=== PATIENT | female | born 1950 | race African-American/Black ===

== ENCOUNTER → 2017-03-15 | Outpatient (CLI) | payer BC, OTHER ==
[~2017-03-15] VITALS: Ht 165.1 cm; Wt 88.9 kg
[~2017-03-15] MED LIST: AMANTADINE 100100 MG PO; AUGMENTIN 875875 MG PO; BACLOFEN 10MG T10 MG PO; BENICAR 5 MG5 M1 PO; BENICAR40 MG PO; CELEXA 20 MG TA20 MG PO; CHONDROITIN SU250 MG; DEXILANT60 MG PO; EXCEDRIN CAPLE1 EACH PO; FLAGYL500 MG PO; LASIX 40 MG TAB40 M1 PO; LEVOTHYROXIN0.025 MG PO; MEDROL DOSPAK21 TAB PO; MEDROLDOSEPACK PO; MELOXICAM7.5 MG PO; NABUMETONE 500500 M2 PO; NEXIUM 40 MG CA40 M1 PO; NORCO 5-325 TA1 EACH PO; PERCOCET 5-3251 EACH PO; PEXEVA30 MG PO; POTASSIUM20; ROBAXIN500 MG PO; VITAMIN D 5050000 I1 PO; VITAMIN E400 UNIT PO
--- NOTE | ~2017-03-15 | HPC ---
[facility] [place] [address] PAIN MANAGEMENT CONSULTATION Name: IKE GREGORIO Room #: REG ISIDRA Pride[facility]PmaErica.#: [id number] Admission: 03/15/17 Attend Phys: Brandi Miller MD Discharge: Date of : 54 Report #: [id number] THIS REPORT FOR: //name// CC: Brandi Suarez MD FOLLOWUP COMPLAINT: Pain after a fall down steps with numbness in the right leg, which is pain, weakness and tenderness. FOLLOWUP HISTORY: The patient is a 66-year-old female who has been seen in the pain clinic in the past. She has undergone trauma since we saw her last. She states that she was walking stairs. A young child ran passed her. This caused her to fall down stairs. She hit her head. She has suffered a concussion. She has some difficulty with her balance as a result of the fall. She is in physical therapy undergoing treatment to improve her balance. Since the fall, she has noted pain in the lumbar area of her right side with pain in the posterior thigh muscle and calf with numbness and tingling down into her foot. She notes that her leg gives way as a result of the weakness. She has numbness and tingling in the lower extremity. She is walking with a cane because of this. She has used medications Relafen, Mobic. She finds that she is experiencing muscle spasms and baclofen has been helpful in the past. She continues with vestibular therapy and uses her cane because of the fall. She also notes some spasms in the upper mid portion of her back. PHYSICAL EXAMINATION: Blood pressure 106/72, pulse 94, respiratory rate 16, room air saturation 98%. Height 5 feet 5 inches. BMI is 32. Weight 89 kilograms. She is walking with a cane. She notes that her right leg is weak and almost gives way secondary to the weakness. She has numbness and tingling down into the L5-S1 dermatomal root of her leg. She is unable to walk on her toes on the right side. Straight leg raising is positive. IMPRESSION: 1. Status post fall in December down stairs. Resultant right lumbar radiculopathy with numbness, weakness and need to walk with a cane since fall. 2. Vestibular instability and undergoing vestibular therapy. 3. Myofascial pain in the mid back area, hypothyroidism, hypertension, joint disease/arthritis, history of cervical laminectomy with some numbness and tingling in the upper arms. 4. The patient has clinical findings consistent with L5-S1 radiculopathy involving the right side with weakness in her right leg requiring use of a cane, numbness and tingling down in the posterior portion of her leg and involving the calf. RECOMMENDATIONS: We discussed treatment options with the patient. Risks and benefits of an epidural steroid injection were discussed. Possible [address] [address] PAIN MANAGEMENT CONSULTATION Name: IKE GREGORIO Room #: REG ISIDRA Castro#: [id number] Admission: 03/15/17 Attend Phys: Brandi Miller MD Discharge: Date of : 54 Report #: [id number] complications were reviewed. 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 We will petition her insurance company, [employer]. After permission has been granted, we will proceed with L5-S1 epidural steroid injection. She will continue with baclofen to help with the muscle spasms. She will continue with her vestibular training. We would like to thank you for letting us participate in her care. We hope, she continues to improve. By: [id number] Brandi Miller MD /karissa
[2017-03-15 10:22] VITALS: BP 106/72
== END ==
LOC: PAIN 07:29
DX: M54.16 Radiculopathy, lumbar region (principal); M79.1 Myalgia; E03.9 Hypothyroidism, unspecified; I10 Essential (primary) hypertension; M96.1 Postlaminectomy syndrome, not elsewhere classified; F17.210 Nicotine dependence, cigarettes, uncomplicated

== ENCOUNTER → 2017-04-12 | Outpatient (CLI) | payer BC, OTHER ==
[~2017-04-12] VITALS: Ht 165.1 cm; Wt 89.4 kg
[~2017-04-12] MED LIST changes: +HYDROCODONE-AP1 EAC6 PO
--- NOTE | ~2017-04-12 | OD ---
[facility] [place] [address] [address] [place] [address] DELIVERY NOTE Name: IKE GREGORIO Room #: REG ISIDRA Gloria#: [id number] Admission: 04/12/17 Attend Phys: Brandi Miller MD Discharge: Date of : 54 Report #: [id number] THIS REPORT FOR: //name// CC: Brandi Suarez DATE OF SERVICE: 04/12/2017 FOLLOWUP COMPLAINT: Pain going down the right posterior leg with weakness and tenderness. FOLLOWUP HISTORY: The patient is a 66-year-old female who has been seen in the pain clinic because of lumbar radiculopathy status post fall. She is walking with a cane. She still has some vestibular instability. She notes that loud noises can be problematic. She was doing reasonably well and went to an activity where the noise was loud. She feels like she had somewhat of a setback. She would like to proceed with an epidural steroid injection today given that she continues to have pain and discomfort radiating down the posterior portion of her right leg and continues to walk with a cane. She continues to have some problems and difficulty with her balance. She continues with physical therapy to help with balance. PHYSICAL EXAMINATION: The patient continues to walk with her cane. Height 165 cm, weight 89 kg, BMI 32, blood pressure 116/78, pulse 98, respiratory rate 16, room air saturation is 99. We had music playing at a medium level in the fluoroscopy room. The patient asked if the music be turned down or almost off because this causes exacerbation of her hearing and involvement of her vestibular system. We turned down the music and she noted an increased level of comfort. IMPRESSION: 1. Status post fall in December down stairs with resultant lumbar radiculopathy with numbness, weakness and tenderness in the right lower extremity. The patient continues to walk with a cane. 2. Vestibular instability and ongoing vestibular therapy. The patient underwent some "setback" after being in an activity where the sound and noise level was high. The patient is considering going to her grandsons graduation. She may have to wear ear plugs or noise cancelling headphone. 3. Myofascial pain in the back, hypothyroidism, hypertension, joint disease/arthritis, history of cervical laminectomy numbness and tingling in the upper arms. RECOMMENDATIONS: We discussed the treatment options with the patient. We will proceed with an epidural steroid injection. Risks and benefits of the procedure were again reviewed. Possible complications were discussed and the patient [address] [address] DELIVERY NOTE Name: IKE GREGORIO Room #: REG [facility]#: [id number] Admission: 04/12/17 Attend Phys: Brandi Miller MD Discharge: Date of : 54 Report #: [id number] elects to proceed. DESCRIPTION OF PROCEDURE: The patient was placed in the prone position. Fluoroscopy was used to identify the right L5-S1 area. This area had been sterilely prepped with Betadine and infiltrated with 0.25% bupivacaine. Total of 80 mg Depo-Medrol, 40 mg triamcinolone and 2 mL of 0.25% bupivacaine was injected. The patient tolerated the procedure well. There were no complications. We would like to thank you for letting us participate in her care. We hope she continues to improve. By: [id number] Brandi Miller MD /nt
[2017-04-12 09:59] VITALS: BP 116/78
== END | disposition home or self-care (01) ==
LOC: PAIN 04-05 08:47
DX: M54.16 Radiculopathy, lumbar region (principal); H81.8X3 Other disorders of vestibular function, bilateral; M79.1 Myalgia; E03.8 Other specified hypothyroidism; I10 Essential (primary) hypertension; M19.90 Unspecified osteoarthritis, unspecified site; F17.200 Nicotine dependence, unspecified, uncomplicated; Z98.890 Other specified postprocedural states; Z91.81 History of falling

== ENCOUNTER → 2017-05-17 | Outpatient (CLI) | payer BC, OTHER ==
[~2017-05-17] VITALS: Ht 165.1 cm; Wt 89.8 kg
[~2017-05-17] MED LIST changes: +FLUCONAZOLE 10100 MG PO
[2017-05-17 11:30] VITALS: BP 132/77
== END | disposition home or self-care (01) ==
LOC: PAIN 06:55
DX: M79.1 Myalgia (principal); M54.16 Radiculopathy, lumbar region; F17.200 Nicotine dependence, unspecified, uncomplicated; Z88.2 Allergy status to sulfonamides; Z88.8 Allergy status to other drugs, medicaments and biological substances; Z79.82 Long term (current) use of aspirin; W17.89XD Other fall from one level to another, subsequent encounter; Z98.890 Other specified postprocedural states

== ENCOUNTER → 2017-09-04 | Outpatient (CLI) | payer OTHER | LOC: CAT 08-30 09:27 | DX: Z13.6 Encounter for screening for cardiovascular disorders (principal) ==

== ENCOUNTER → 2018-10-19 | Outpatient (CLI) | payer OTHER ==
[~2018-10-19] VITALS: Ht 165.1 cm; Wt 86.6 kg
[~2018-10-19] MED LIST changes: +DOXEPIN 10 MG C10 M1 PO; +HYDROCODON-ACE1 EAC7 PO; +MOBIC15 MG PO; +NEXIUM40 MG PO
--- NOTE | ~2018-10-19 | HPC ---
[facility] [address] [address] PAIN MANAGEMENT CONSULTATION Name: IKE GREGORIO Room #: REG [facility].#: [id number] Admission: 10/19/18 Attend Phys: Brandi Miller MD Discharge: Date of : 54 Report #: [id number] THIS REPORT FOR: //name// CC: Brandi Suarez DATE OF SERVICE: 10/19/2018 PRIMARY CARE PHYSICIAN: Basim Suarez MD FOLLOWUP COMPLAINT: Pain has returned in the low back area. HISTORY: The patient is a 68-year-old female who has been seen in the pain clinic in the past because of low back pain with some pain that radiates down into her legs. Also, has noted some thoracic pain and SI joint pain. She has undergone trigger point injections in the past. She has gleaned benefits from both of those. She has noted that the pain is "flared up after physical therapy." Involves her shoulders. It is worse in the upper shoulder and back area. She also feels that she has pain and discomfort in the lower portion of the back and feels that there is a "knot in her back that has been difficult to resolve." She received benefits from trigger point injection in the past and has returned for evaluation and treatment. ALLERGIES: CONTRAST DYE, SULFA, IODINE, OXYCODONE, GATIFLOXACIN, METOCLOPRAMIDE-MADE HER CRAZY, CODEINE CAUSE HIVES. MEDICATIONS: Nexium 40 mg b.i.d., fluconazole 100 mg orally for 14 days after use of steroids secondary to the development of thrush, Benicar 40 mg, Pexeva 30 mg, levothyroxine 0.025 mg, vitamin D 50,000 units weekly, Excedrin caplets 2 tablets q.i.d., Robaxin 500 mg b.i.d., nabumetone 500 mg b.i.d., K-Dur 20 mEq, Lasix 40 mg. PAIN CLINIC ASSESSMENT/PQRS: 1. History of osteoarthritis, right upper extremity, right lower extremity. 2. History of rheumatoid arthritis. The patient is not being treated for rheumatoid arthritis. 3. Height 5 feet 5 inches, weight 191 pounds, BMI 31.8. 4. Vital signs: Blood pressure 124/77, pulse 116, respiratory rate 20, room air saturation 99%. 5. Pain intensity 05/29. 6. Fall risk. The patient has not fallen in the last 3 months. 7. Blood thinner: The patient is not on a blood thinning medication. 8. Hypertension. The patient is being treated for hypertension. 9. Opioid therapy greater than 6 weeks. 10. Risk assessment 3, low for opioid use. 11. Functional assessment tool 57/70. [place] [address] PAIN MANAGEMENT CONSULTATION Name: IKE GREGORIO [facility] [id number] Admission: 10/19/18 Attend Phys: Brandi Miller MD Discharge: Date of : 54 Report #: [id number] 12. Recreational drug use. The patient denies use of recreational drugs. 13. Currently the patient smokes 4 cigarettes a day, has smoked for the last 30 years. We discussed the benefits of the cessation of tobacco use with the patient. 14. Alcohol: The patient denies frequent use of alcoholic beverages except on special occasions. PHYSICAL EXAMINATION: GENERAL: The patient is a well-developed, well-nourished black female, appears her stated age. She is alert and oriented x 3. Her affect is appropriate. Speech is fluent. HEENT: Normocephalic, atraumatic. Extraocular eye muscles intact. Sclerae nonicteric. Mucous membranes are moist. NECK: Without adenopathy or JVD. The patient has some pain and discomfort in her shoulders bilaterally. Has global tenderness to palpation in the upper back, left and right lower back area. The patient has pain and discomfort in the left and right posterior superior iliac spine area. Has low back pain and discomfort. Upper extremity muscle strength is judged to be 5-/5 for the major muscle groups. Lower extremity muscle strength 5-/5 for the major muscle groups in lower extremity. Use her arms to go from sitting to a standing position. IMPRESSION: 1. Myofascial pain in the low back area, which improved with trigger point injection in the past. 2. Somewhat global myofascial pain and discomfort in the upper extremity. Vestibular instability-underwent therapy. 3. Hypothyroidism. 4. Hypertension. 5. Joint disease/arthritis. 6. History of cervical laminectomy with numbness and tingling in the upper arms. 7. Myofascial pain. RECOMMENDATIONS: We discussed treatment option with the patient. She has so many trigger points in the upper extremity. We have discussed the need for the patient to try to continue to exercise and hopefully the most painful area will present itself. We explained there is no way we could inject a number of pain areas that she is experiencing at this juncture. Does have pain and discomfort in the left posterior superior iliac spine area in the back on the left and the right, which in the past when injections were performed were beneficial. The patient has elected to undergo this injection at this juncture. PROCEDURE NOTE: The patient was placed in sitting position. Her back was sterilely prepped with a Betadine solution on the left than the right. The patient was sitting perpendicular to the bed. Her feet were in a chair. Leaning forward holding a pillow. Trigger points were noted in the left and [facility] [address] [place] [address] PAIN MANAGEMENT CONSULTATION Name: IKE GREGORIO Room #: REG [facility] Gloria#: [id number] Admission: 10/19/18 Attend Phys: Brandi Miller MD Discharge: Date of : 54 Report #: [id number] right posterior superior iliac spine area. A 25-gauge needle was then advanced into this area after it had been sterilely prepped with a chlorhexidine solution and allowed to dry. The patient states that we did hit the trigger point in the left posterior superior iliac spine near the latissimus dorsi and the gluteus silva. A total of 80 mg Depo-Medrol was injected. The contralateral side was treated in a like fashion. A 25-gauge needle was used to identify the trigger point in the right posterior superior iliac spine near the latissimus dorsi and gluteus silva. A total of 80 mg Depo-Medrol and 10 mL of 0.5% bupivacaine was injected into this area as well. The patient's pain overall decreased to 0 at the time of her discharge. She will continue to exercise as needed. A script for fluconazole 100 mg has been written. The patient does develop a thrush after each use of prednisone. She has also been given a script for hydrocodone 5/325 one p.o. b.i.d. Meloxicam 15 mg 1 p.o. daily has been also issued. A muscle relaxant, baclofen 10 mg 1 p.o. t.i.d. has been written. The patient will also try doxepin 10 mg at bedtime and note its efficacy. We would like to thank you for letting us participate in her care. We hope she continues to improve. <ELECTRONICALLY SIGNED> By: Brandi Miller MD 10/24/18 [id number] [id number] Brandi Miller MD /[facility]
[2018-10-19 10:39] VITALS: BP 124/77
== END | disposition home or self-care (01) ==
LOC: PAIN 08:31
DX: M79.18 Myalgia, other site (principal); E03.9 Hypothyroidism, unspecified; I10 Essential (primary) hypertension; M19.90 Unspecified osteoarthritis, unspecified site; F17.210 Nicotine dependence, cigarettes, uncomplicated; Z98.890 Other specified postprocedural states; Z88.2 Allergy status to sulfonamides; Z88.8 Allergy status to other drugs, medicaments and biological substances; Z91.041 Radiographic dye allergy status; Z79.899 Other long term (current) drug therapy; Z79.891 Long term (current) use of opiate analgesic

== ENCOUNTER → 2019-01-18 | Outpatient (CLI) | payer OTHER ==
[~2019-01-18] VITALS: Ht 165.1 cm; Wt 88.6 kg
--- NOTE | ~2019-01-18 | HPC ---
[facility] [place] [address] [address] [place] [address] PAIN MANAGEMENT CONSULTATION Name: IKE GREGORIO [facility] [id number] Admission: 01/18/19 ������������������ Attend Phys: Brandi Miller MD Discharge: ������������������ Date of : 54 Report #: [id number] THIS REPORT FOR: //name// CC: Brandi Suarez DATE OF SERVICE: 01/18/2019 CHIEF COMPLAINT: Pain improved after the last injection, but has returned. 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 As you recall, she has back pain. She has had some myofascial pain in the low back area and has improved after trigger point injections. She returns today indicating that she has noted recurrence of pain and discomfort. She would like to undergo an injection in the affected areas again. She had no complication from the previous treatment. She has pain in the mid and low back area and involves both hips. Rates her pain as a 4-5/10. Walking, standing, lifting, bending have been problematic. Use of heat, medications and rest have been helpful. ALLERGIES: CONTRAST DYE, SULFA, IODINE, OXYCODONE, GATIFLOXACIN METOCLOPRAMIDE -- made her crazy, CODEINE CAUSES HIVES. CURRENT MEDICATIONS: Nexium 40 mg b.i.d., fluconazole 100 mg orally for 14 days after use of steroids secondary to development of thrush. Benicar 40 mg, pexeva x 30 mg, levothyroxine 0.25 mg, vitamin D 50,000 units weekly, Excedrin caplets 2 mg q.i.d., Robaxin 500 mg, nabumetone 500 mg b.i.d., potassium 20 mEq, and Lasix 40 mg. PAIN CLINIC ASSESSMENT/PQRS: 1. The patient has some right upper extremity arthritic changes as well as some right lower extremity arthritic changes. The patient is not being treated for rheumatoid arthritis. 2. Height 5 feet 5 inches, weight 195 pounds, BMI is 32. 3. Vital signs: Blood pressure 127/77, pulse 97, respiratory rate 16, room air saturation 99%. 4. Pain intensity 4-5/10. 5. Fall risk. The patient has not fallen in the last 3 months. 6. Blood thinner. The patient is not on a blood thinning medication. 7. Hypertension. The patient has been treated for hypertension. 8. Opiates greater than 6 weeks. The patient receives her medication from one source. 9. Risk assessment tool 3/low for opioid use. 10. Functional assessment tool 57/70. 11. Recreational drug use. The patient denies use of recreational drugs. 12. Tobacco: The patient smokes 4-5 cigarettes per day, has smoked for many [address] [address] PAIN MANAGEMENT CONSULTATION Name: IKE GREGORIO Room #: REG [facility]#: [id number] Admission: 01/18/19 ������������������ Attend Phys: Brandi Miller MD Discharge: ������������������ Date of : 54 Report #: [id number] years, again discussed the benefits of smoking cessation. 13. Alcohol. The patient drinks on special occasions, but not regularly. PHYSICAL EXAMINATION: GENERAL: The patient is a well-developed, well-nourished black female, appears her stated age. She is alert and oriented x 3. Her affect is appropriate. Speech is fluent. HEENT: Normocephalic, atraumatic. Extraocular eye muscles intact. Sclerae nonicteric. Mucous membranes are moist. NECK: Without adenopathy or JVD. The patient has some tenderness in the upper back on the left than the right areas near the left and right L5 paraspinal area. Palpation in this area does reproduce a component of the patient's pain. Muscle strength is judged to be 5-/5 for the major muscle groups in the lower extremity. IMPRESSION: 1. Myofascial pain, low back area improved with trigger point injections in the past. 2. Global myofascial pain and discomfort in some areas of the upper extremity. Some history of vestibular instability, has undergone therapy for this. 3. Hypothyroidism. 4. Hypertension. 5. Joint disease/arthritis. 6. History of cervical laminectomy numbness and tingling in the upper arms. 7. Myofascial pain. RECOMMENDATIONS: We discussed treatment options with the patient. Risks and benefits of a trigger point injection in the left and the right area were discussed. They include possibility of infection, worsening of pain, no improvement in pain, nerve damage, bleeding and the patient elects to proceed. PROCEDURE NOTE: The patient was placed in the sitting position. She has perpendicular to the bed. He was elevated. Chair was then placed under her feet. She would lean forward as though she can tie her shoes. Her back was sterilely prepped with a Betadine solution and allowed to dry. A 25-gauge needle was then advanced into the area of the right posterior superior iliac spine near the gluteus silva and latissimus dorsi. The patient states this did reproduce her discomfort. A total of 8 mL of 0.5% bupivacaine and 80 mg Depo-Medrol was injected. The contralateral side was treated in a like fashion. It had been sterilely prepped. Trigger point was noted in the area of the left posterior superior iliac spine area and the gluteus silva and latissimus dorsi. Palpation reproduces discomfort. A 25-gauge needle was then advanced into the area of discomfort. A total of 80 mg Depo-Medrol, 8 mL of 0.25% bupivacaine was injected. The patient tolerated the procedure well. She will follow up in the future as needed. The patient has also been given a script for fluconazole 100 mg orally ____. The patient has a history of development of [facility] [place] [address] PAIN MANAGEMENT CONSULTATION Name: IKE GREGORIO Room #: REG [facility]#: [id number] Admission: 01/18/19 ������������������ Attend Phys: Brandi Miller MD Discharge: ������������������ Date of : 54 Report #: [id number] thrush. She will also continue with Meloxicam and hydrocodone 5/325 one p.o. b.i.d. We would like to thank you for letting us participate in her care. We hope she continues to improve. ��������������������������������������������� ���������������������������������������� By: ��������������������������������������������� [phone] Brandi Miller MD /nt
[2019-01-18 10:28] VITALS: BP 127/77
--- NOTE | 2019-01-18 10:44 | NUR ---
Pain Clinic Assessment: 1. History of Osteoarthritis: Right Lower Extremity Right Upper Extremity History of Rheumatoid Arthritis: Not Applicable 2. Height: 5 ft. 5 in. 165.1 cm. Weight: 195.4 lb. oz. 88.633 kg. Patient's BMI: 32.5 3. Vital Signs: BP: 127/77 Pulse: 97 Resp: 16 Temp: 02 Sat: 99 ECG Mon: 4. Pain Intensity: 4-5 5. Fall Risk: Dizziness: Y Needs help standing or walking: N Fallen in the last 3 months: N Fall risk comments: 6. Patient on Blood Thinner: None 7. History of Hypertension: Y 8. Opioid Therapy greater than 6 weeks: N Opiate Contract Signed: 9. Risk Assessment Tool Provided: 3-LOW 10. Functional Assessment Tool: 57/70 11. Recreational Drug Use: Never Drug Type: Tobacco Use: Current Every Day Smoker Tobacco Type: Cigarettes Amount or Packs/day: 4-5 CIG DAY How Many Years: Alcohol Use: Yes Frequency: Special Occasions Quant: 1-2
== END | disposition home or self-care (01) ==
LOC: PAIN 06:52
DX: M79.18 Myalgia, other site (principal); G89.29 Other chronic pain; I10 Essential (primary) hypertension; M19.90 Unspecified osteoarthritis, unspecified site; E03.9 Hypothyroidism, unspecified; F17.210 Nicotine dependence, cigarettes, uncomplicated; Z98.890 Other specified postprocedural states; Z79.899 Other long term (current) drug therapy; Z88.2 Allergy status to sulfonamides; Z91.041 Radiographic dye allergy status; Z88.8 Allergy status to other drugs, medicaments and biological substances

== ENCOUNTER 2019-03-22 06:52 | Inpatient (IN) | payer OTHER ==
[~2019-03-22] VITALS: Ht 165.1 cm; Wt 86.2 kg
[2019-03-22 11:03] LABS: HEMATOCRIT 41.5 % (37.0-47.0); HEMOGLOBIN 13.9 gm/dL (12.0-15.0); MCH 31.1 pg (26.0-34.0); MCHC 33.4 g/dL (28.0-37.0); MCV 93.1 fL (80.0-100.0); RBC 4.46 mil/uL (4.20-5.00); RDW 13.9 % (10.5-14.5); WBC 6.8 thou/uL (4.0-11.0)
[2019-03-22 11:16] VITALS: BP 142/114
[2019-03-22 11:17] LABS: ALBUMIN 3.8 g/dL (3.4-5.0); CALCIUM 10.1 mg/dL (8.5-10.1); CREATININE 1.3 mg/dL (0.6-1.0); POTASSIUM 4.5 mmol/L (3.5-5.1); TOTAL BILIRUBIN 0.3 mg/dL (<0.1-1.0); TOTAL PROTEIN 7.6 g/dL (6.4-8.2)
[2019-03-22 17:31] VITALS: BP 127/70
--- NOTE | 2019-03-22 18:30 | NUR ---
PT ARRIVED TO ROOM DIRECT ADMIT FROM DR. BUCKNER'S OFFICE AT 10:20 VIA WHEELCHAIR IN STABLE CONDITION. ADMISSION ASSESSMENT COMPLETED. A&O,X4. C/O ABD PAIN, PAIN MEDS GIVEN ORDERED. CT SCAN TODAY - ALLERGY NOTED, PHYSICIAN NOTIFIED, PREMEDICATED ORDERED PRIOR TO CT SCAN. PT RETURNED, NO PROBLEMS NOTED. PT USES CANE AT HOME. PT IN STABLE CONDITION.
[2019-03-22 19:44] VITALS: BP 130/56
[2019-03-23 04:30] VITALS: BP 96/61
--- NOTE | 2019-03-23 04:45 | NUR ---
ALERT AND ORIENTED. UP AD LUC. CONTINUES ON IV ABT AND FLUIDS..VSS. GETTING MORPHINE FOR PAIN. CALLS WITH NEEDS.
[2019-03-23 08:00] VITALS: BP 94/46
--- NOTE | 2019-03-23 11:23 | NUR ---
ASSESMENT COMPLETED. VSS. A/O. DENIES PAIN THIS AM. NO NOTED SOA. NO NV. DIET ADVANCED TO FULL. PT RESTING IN BED. WILL CONT. TO MONITOR.
[2019-03-23 16:00] VITALS: BP 114/51
[2019-03-23 19:55] VITALS: BP 93/45
--- NOTE | 2019-03-24 03:03 | NUR ---
Assumed care of pt at 1900. Pt alert and oriented x4. IVF and IV antibiotics infusing. No c/o pain. Call light within reach.
[2019-03-24 05:43] VITALS: BP 120/69
[2019-03-24 07:30] VITALS: BP 123/57
[2019-03-24] MEDS ORDERED: FLAGYL500 M1 PO (08:20)
[2019-03-24] MEDS ORDERED: AUGMENTIN 875-1 EACH PO (08:20)
[2019-03-24] MEDS ORDERED: HYDROCODON-ACE1 EAC7 PO (08:20)
[2019-03-24 10:00] VITALS: BP 123/57
--- NOTE | 2019-03-24 10:22 | NUR ---
ASSESMENT COMPLETED. VSS. A/O. DENIES PAIN. NO NOTED SOA. NO NV. DC IV PT IS DISCHARGING. DC INSTRUCTIONS GIVEN TO PT. PT VERBALIZED UNDERSTANDING. WILL CONT. TO MONITOR.
== END 2019-03-24 11:02 | disposition home or self-care (01) | DRG 392 ==
LOC: PAIN 06:52 → 4E 09:52 → PAIN 13:11 → 4E 03-24 11:02
PROVIDERS: ADMIT Family Medicine
DX: K57.92 Diverticulitis of intestine, part unspecified, without perforation or abscess without bleeding (principal); I10 Essential (primary) hypertension; F17.210 Nicotine dependence, cigarettes, uncomplicated; Z87.820 Personal history of traumatic brain injury; Z90.49 Acquired absence of other specified parts of digestive tract; Z90.710 Acquired absence of both cervix and uterus; Z79.82 Long term (current) use of aspirin; Z79.899 Other long term (current) drug therapy; Z88.5 Allergy status to narcotic agent; Z88.2 Allergy status to sulfonamides; Z88.8 Allergy status to other drugs, medicaments and biological substances; Z91.041 Radiographic dye allergy status
CPT/HCPCS: 10783

== ENCOUNTER → 2019-05-15 | Outpatient (CLI) | payer OTHER ==
[~2019-05-15] VITALS: Ht 165.1 cm; Wt 89.2 kg
[~2019-05-15] MED LIST changes: +AUGMENTIN 875-1 EACH PO; +FLAGYL500 M1 PO
--- NOTE | ~2019-05-15 | HPC ---
[facility] [place] [address] PAIN MANAGEMENT CONSULTATION Name: IKE GREGORIO Room #: REG ISIDRA Goddard.#: [id number] Admission: 05/15/19 ������������������ Attend Phys: Brandi Miller MD Discharge: ������������������ Date of : 54 Report #: [id number] THIS REPORT FOR: //name// CC: Brandi Suarez DATE OF SERVICE: 05/15/2019 CHIEF COMPLAINT: Mid and low back pain and pain in both hips. HISTORY: The patient is a 68-year-old, who has been seen in the pain clinic because of back pain. She was seen in the past few weeks in urgent care. She had a history of diverticulitis, this was in 03/2019. She states that things have improved. She is considering surgery in the nasal area. She states that she has some problems with her turbinates. She had the surgery yesterday. She continues to have some pain and discomfort in the lower portion of her back and some tenderness in the SI joint area. She continues to have some discomfort in her low back as well as in the right side. She has some discomfort in the L5-S1 area and has some perception of weakness in her foot. She has returned to the pain clinic for evaluation of the upper shoulder and mid back area. Also, has some pain under the right scapular area and in the midline at about L2 through L5. She rates her pain as a 4/10 with current medical regimen. CURRENT MEDICATIONS: Nexium 40 mg b.i.d., fluconazole 100 mg in the past for thrush after injections, Benicar 40 mg, Pexeva 30 mg, levothyroxine 0.25 mg, vitamin D 50,000 units weekly, Excedrin caplets 2 q.i.d., Robaxin 500 mg, nabumetone 500 mg b.i.d., potassium 20 mEq, and Lasix 40 mg. ALLERGIES: CONTRAST DYE, SULFA, IODINE, OXYCODONE, GATIFLOXACIN, METOCLOPRAMIDE - MADE HER CRAZY, AND CODEINE CAUSES HIVES. PAIN CLINIC ASSESSMENT AND PQRS: 1. The patient has some right upper extremity arthritic changes as well as some right lower extremity arthritic changes. The patient is not being treated for rheumatoid arthritis. 2. Pain intensity is 4/10 with medication. 3. Fall risk. The patient has not fallen in the last 3 months. 4. Blood thinner. The patient is not on a blood thinning medication. 5. Hypertension. The patient is being treated for hypertension. 6. Opioids greater than 6 weeks. 7. Risk assessment tool, low for opioid use. 8. Functional assessment tool, 57/70. 9. Recreational drug use. The patient denies. 10. Tobacco: The patient is an everyday smoker. Discussed benefits of smoking cessation. 11. Alcohol: ____ more than occasional use of alcoholic beverages. [address] [address] PAIN MANAGEMENT CONSULTATION Name: IKE GREGORIO Room #: REG ISIDRA Castro#: [id number] Admission: 05/15/19 ������������������ Attend Phys: Brandi Miller MD Discharge: ������������������ Date of : 54 Report #: [id number] PHYSICAL EXAMINATION: GENERAL: The patient is well-developed, well-nourished black female. She appears her stated age. She is alert and oriented x 3. Her affect is appropriate. Speech is fluent. Height is 5 feet 5 inches, weight is 196 pounds, and BMI is 32.7. VITAL SIGNS: Blood pressure is 141/75, pulse is 73, respiratory rate is 16, and room air saturation is 100%. HEENT: Normocephalic, atraumatic. Extraocular eye muscles intact. Sclerae nonicteric. Mucous membranes are moist. The patient has recently had surgery in the turbinates. NECK: Without adenopathy or JVD. BACK: The patient has some tenderness in the upper portion of her back as well as some pain in the lower portion of her back in the L5 paraspinal area. Palpation in the low back area does reproduce a component of the patient's pain. EXTREMITIES: Muscle strength is judged to be 5/5 for the major muscle groups in the upper extremity and 5/5 for the major muscle groups in the lower extremity. IMPRESSION: 1. Recent nasal surgery ____ of her turbinates. This was one day prior to her visit to the pain clinic. 2. Myofascial pain, which has improved in the past with trigger point injections. 3. Global myofascial pain in some areas. 4. History of vestibular instability. 5. Hypothyroidism. 6. Hypertension. 7. Joint disease/arthritis. 8. History of cervical laminectomy with numbness and tingling in upper extremity. 9. Myofascial pain. RECOMMENDATIONS: We have discussed treatment options with the patient. At this juncture, the patient has returned with a hope of undergoing trigger point injections. We explained to the patient the problems with this or that she recently has had turbinate surgery. Steroids can be problematic and cause delayed healing. We will have the patient contact her ENT doctor. After he/she visit, it would be reasonable to undergo an injection, we will. We will have the patient follow up in the near future. We will have her try Bowie 5/325 one p.o. b.i.d. She will also continue with baclofen for the muscle spasms, she will take 1 p.o. t.i.d. She will call us if she has any concerns. She will follow the directions of her physician in regards to use of nonsteroidal anti-inflammatory medications at this juncture. [address] [place] [address] PAIN MANAGEMENT CONSULTATION Name: IKE GREGORIO Room #: REG CL Gloria#: [id number] Admission: 05/15/19 ������������������ Attend Phys: Brandi Miller MD Discharge: ������������������ Date of : 54 Report #: [id number] We would like to thank you for letting us to participate in her care. We hope that she continues to improve. ��������������������������������������������� ���������������������������������������� By: ��������������������������������������������� [id number] Brandi Miller MD /JAZLYN
[2019-05-15 10:40] VITALS: BP 141/75
--- NOTE | 2019-05-15 11:02 | NUR ---
Pain Clinic Assessment: 1. History of Osteoarthritis: Right Lower Extremity Right Upper Extremity History of Rheumatoid Arthritis: Not Applicable 2. Height: 5 ft. 5 in. 165.1 cm. Weight: 196.6 lb. oz. 89.177 kg. Patient's BMI: 32.7 3. Vital Signs: BP: 141/75 Pulse: 73 Resp: 16 Temp: 02 Sat: 100 ECG Mon: 4. Pain Intensity: 4 WITH MEDS 5. Fall Risk: Dizziness: Y Needs help standing or walking: N Fallen in the last 3 months: N Fall risk comments: 6. Patient on Blood Thinner: None 7. History of Hypertension: Y 8. Opioid Therapy greater than 6 weeks: N Opiate Contract Signed: 9. Risk Assessment Tool Provided: 3-LOW 10. Functional Assessment Tool: 57/70 11. Recreational Drug Use: Never Drug Type: Tobacco Use: Current Every Day Smoker Tobacco Type: Amount or Packs/day: How Many Years: Alcohol Use: Yes Frequency: Quant:
== END ==
LOC: PAIN 06:52
DX: M54.5 Low back pain (principal); M25.551 Pain in right hip; M25.552 Pain in left hip; E03.9 Hypothyroidism, unspecified; I10 Essential (primary) hypertension; F17.200 Nicotine dependence, unspecified, uncomplicated; Z79.891 Long term (current) use of opiate analgesic

== ENCOUNTER 2019-11-17 15:45 | Emergency (ER) | payer OTHER ==
[~2019-11-17] VITALS: Ht 165.1 cm; Wt 84.8 kg
--- NOTE | 2019-11-17 16:33 | EKG ---
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1950 Requested By: Elsa Guaman Order Number: [id number] MD: Orestes Huertas Measurements Intervals [place] Rate: 95 P: 45 MN: 140 QRS: 33 QRSD: 76 T: 51 QT: 336 QTc: 423 Interpretive Statements Sinus rhythm Baseline wander Nonspecific ST-T wave changes poor R-wave progression Compared to ECG 11/28/2008 19:59:19 Poor R-wave progression now noted Electronically Signed On 11-17-2019 16:32:58 MILL MACHINIST by Orestes Huertas [email or web address] <ELECTRONICALLY SIGNED> By: Orestes Huertas MD 11/17/19 1632 1615 1615 Orestes Huertas MD /EPI
[2019-11-17 17:23] LABS: ABSOLUTE NEUTROPHILS 2.9 thou/uL (1.4-8.2); BASOPHILS 0.9 % (0.0-2.0); HEMATOCRIT 47.5 % (37.0-47.0); HEMOGLOBIN 15.6 gm/dL (12.0-15.0); LYMPHOCYTES 48.6 % (24.0-44.0); MCH 28.6 pg (26.0-34.0); MCHC 32.8 g/dL (28.0-37.0); MCV 87.2 fL (80.0-100.0); MONOCYTES 6.5 % (1.0-8.0); PLATELET COUNT 215 thou/uL (150-400); RBC 5.45 mil/uL (4.20-5.00); RDW 14.7 % (10.5-14.5); WBC 6.9 thou/uL (4.0-11.0)
[2019-11-17 17:29] LABS: ANION GAP 11 mmol/L (7-16); BUN 11 mg/dL (7-18); CALCIUM 10.1 mg/dL (8.5-10.1); CHLORIDE 100 mmol/L (98-107); CO2 24 mmol/L (21-32); CREATININE 1.1 mg/dL (0.6-1.0); GLUCOSE 187 mg/dL (74-106); POTASSIUM 4.7 mmol/L (3.5-5.1); SODIUM 135 mmol/L (136-145)
[2019-11-17 17:39] LABS: ALBUMIN 4.1 g/dL (3.4-5.0); LIPASE 111 U/L (73-393); SGOT 38 U/L (15-37); SGPT 38 U/L (30-65); TOTAL BILIRUBIN 0.4 mg/dL (<0.1-1.0); TOTAL PROTEIN 8.3 g/dL (6.4-8.2); TROPONIN-I <0.06 ng/mL (<0.06)
[2019-11-17] MEDS ORDERED: MAGIC MOUTHWASH SW&SWALLOW (18:52)
[2019-11-17] MEDS ORDERED: DIFLUCAN100 MG PO (18:52)
[2019-11-17 19:28] VITALS: BP 151/98
== END 2019-11-17 19:29 | disposition home or self-care (01) ==
LOC: ER 15:45
PROVIDERS: Nurse Practitioner Family
DX: K20.9 Esophagitis, unspecified (principal); I10 Essential (primary) hypertension; Z90.49 Acquired absence of other specified parts of digestive tract; Z90.710 Acquired absence of both cervix and uterus; Z91.041 Radiographic dye allergy status; Z88.2 Allergy status to sulfonamides; Z88.6 Allergy status to analgesic agent; Z88.8 Allergy status to other drugs, medicaments and biological substances

== ENCOUNTER → 2019-11-29 | Outpatient (CLI) | payer OTHER ==
[~2019-11-29] VITALS: Ht 165.1 cm; Wt 86.1 kg
[~2019-11-29] MED LIST changes: +DIFLUCAN100 MG PO; +MAGIC MOUTHWASH SW&SWALLOW
[2019-11-29 13:15] VITALS: BP 152/73
--- NOTE | 2019-11-29 13:38 | NUR ---
Pain Clinic Assessment: 1. History of Osteoarthritis: Right Lower Extremity Right Upper Extremity History of Rheumatoid Arthritis: Not Applicable 2. Height: 5 ft. 5 in. 165.1 cm. Weight: 189.8 lb. oz. 86.093 kg. Patient's BMI: 31.6 3. Vital Signs: BP: 152/73 Pulse: 78 Resp: 16 Temp: 02 Sat: 98 ECG Mon: 4. Pain Intensity: 4-5 5. Fall Risk: Dizziness: N Needs help standing or walking: Y Fallen in the last 3 months: N Fall risk comments: 6. Patient on Blood Thinner: None 7. History of Hypertension: Y 8. Opioid Therapy greater than 6 weeks: N Opiate Contract Signed: 9. Risk Assessment Tool Provided: 3-LOW 10. Functional Assessment Tool: 57/ 11. Recreational Drug Use: Never Drug Type: Tobacco Use: Current Every Day Smoker Tobacco Type: Cigarettes Amount or Packs/day: 4 cigs/day How Many Years: 16 Alcohol Use: Yes Frequency: Special Occasions Quant: 3/year
== END | disposition home or self-care (01) ==
LOC: PAIN 06:55
DX: M54.16 Radiculopathy, lumbar region (principal); G89.29 Other chronic pain; F17.210 Nicotine dependence, cigarettes, uncomplicated; Z98.890 Other specified postprocedural states; Z79.899 Other long term (current) drug therapy; Z88.2 Allergy status to sulfonamides; Z91.041 Radiographic dye allergy status; Z88.8 Allergy status to other drugs, medicaments and biological substances; Z79.891 Long term (current) use of opiate analgesic; Z98.0 Intestinal bypass and anastomosis status; Z87.19 Personal history of other diseases of the digestive system

== ENCOUNTER → 2020-10-09 | Outpatient (CLI) | payer OTHER ==
[~2020-10-09] VITALS: Ht 165.1 cm; Wt 80.7 kg
[~2020-10-09] MED LIST changes: +AMITRIPTYLINE H10 M3 PO; +HYDROCODONE-AP1 EA11 PO; +METHADONE HCL5 MG PO; +METHADONE PO; +NEURONTIN600 MG PO
--- NOTE | ~2020-10-09 | HPC ---
[facility] [place] [address] PAIN MANAGEMENT CONSULTATION Name: IKE GREGORIO [facility] [id number] Admission: 10/09/20 Attend Phys: Brandi Miller MD Discharge: Date of : 54 Report #: [id number] THIS REPORT FOR: cc: Basim Suarez MD, Neal A. MD Brown,Brandi Aguilera MD ~ CC: Brandi Suarez DATE OF SERVICE: 10/09/2020 CHIEF COMPLAINT: "I had a very high sugar level. I was down for about half a day. After that, I was hospitalized and has had some weakness on my left side." HISTORY: The patient is a 70-year-old female who has been seen in the pain clinic in the past because of lumbar radiculopathy. She has undergone epidural steroid injections in the past. In 11/1999, she was found after being incapacitated for about half a day. Her blood sugars were about or greater than 1000. She was hospitalized for some time. She was in the ICU. She was coded on a number of occasions. 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 She underwent a tracheostomy. She was taken to a long-term facility. She states that she coded while at [facility]. She woke up after a couple of weeks. She was then at a rehab center in [place]. She remained there until about 03/31/2020. She has had pain and discomfort involving her left arm. While she was unconscious and lying on the floor, she laid on her left arm causing some problems in the area of the median and ulnar nerves. She does have a burning pain. It does bring her to tears. She has returned to the pain clinic for evaluation. She did have surgery on the left arm to decompress it early in her traumatic history. ALLERGIES: CONTRAST DYE, SULFA, IODINE, OXYCODONE, GATIFLOXACIN, METOCLOPRAMIDE -- MADE HER CRAZY, CODEINE CAUSES HIVES. MEDICATIONS: Methadone 5 mg b.i.d., gabapentin 600 mg 4 times daily, fluconazole 100 mg b.i.d., hydrocodone 5/325 one q.4 hours p.r.n., Mobic 15 mg, baclofen 10 mg t.i.d., Nexium 40 mg b.i.d., Benicar 40 mg, Pexeva 30 mg, levothyroxine 0.025 mg, vitamin D 50,000 International Units weekly, Excedrin caplets, K-Dur 20 mEq, Lasix 40 ____. PAIN CLINIC ASSESSMENT AND PQRS: 1. The patient has had pain in her low back with pain radiating down into the L5-S1 dermatomal distribution involving her right leg. The patient has pain and discomfort in the left arm with a neuropathic component. 2. The patient is not being treated for rheumatoid arthritis. 3. Height 5 feet 5 inches, weight 178 pounds, BMI is 29.6. 4. Vital Signs: Blood pressure 113/72, pulse 108, respiratory rate 16, room [address] [address] PAIN MANAGEMENT CONSULTATION Name: IKE GREGORIO [id number] Admission: 10/09/20 Attend Phys: Brandi Miller MD Discharge: Date of : 54 Report #: [id number] air saturation 98%. 5. Pain intensity 02/27. 6. Fall risk. The patient has not fallen in the last few weeks. 7. Blood thinner. The patient is not on a blood thinning medication. 8. Hypertension. The patient is not being treated for hypertension. 9. Opioid therapy greater than 6 weeks. The patient receives medication from her primary. 10. Risk assessment tool, low for opioid use. 11. Functional assessment tool . 12. Recreational drug use: The patient denies. 13. Tobacco: The patient smokes 4-5 cigarettes a day, has smoked for 14 years. 14. Alcohol. The patient occasionally drinks alcoholic beverages. PHYSICAL EXAMINATION: GENERAL: The patient is a well-developed, black female, appears her stated age. She is alert and oriented. Her affect is appropriate. Speech is fluent. HEENT: Normocephalic, atraumatic. Extraocular eye muscles intact. The patient is wearing a facial covering. NECK: Without adenopathy. LUNGS: Generally clear. ABDOMEN: Nontender. MUSCULOSKELETAL: Left upper extremity with complaint of pain from the elbow down into her hands. She has a healing scar in the anterior area, appears to have been as a result of a fasciotomy. IMPRESSION: 1. Chronic neuropathic pain involving the left arm. 2. History of vestibular instability. 3. Hypothyroidism. 4. Hypertension in the past. 5. Joint disease/arthritis. 6. History of cervical laminectomy with numbness and tingling in the upper extremities at times. 7. Myofascial pain. 8. Development of thrush after steroid use. RECOMMENDATIONS: We discussed treatment options with the patient. At this juncture, we will continue with medications to help with the neuropathic pain. The patient will take Elavil 10 mg to 20 mg at bedtime. Hopefully, this will be help with the pain. The patient will also continue with methadone at 5 mg 1 p.o. t.i.d. The patient will continue with [place] 7.5 mg b.i.d. She will continue with baclofen 10 mg t.i.d. She will follow up in the future. We will consider the efficacy of nerve blocks in the left upper extremity. [facility] [address] [place] [address] PAIN MANAGEMENT CONSULTATION Name: IKE GREGORIO Room #: REG CL Gloria#: [id number] Admission: 10/09/20 Attend Phys: Brandi Miller MD Discharge: Date of : 54 Report #: [id number] We would like to thank you for letting us participate in her care. We hope she continues to improve. By: [id number] Brandi Miller MD /karissa
[2020-10-09 09:19] VITALS: BP 113/72
--- NOTE | 2020-10-09 09:33 | NUR ---
Pain Clinic Assessment: 1. History of Osteoarthritis: Right Lower Extremity Right Upper Extremity History of Rheumatoid Arthritis: Not Applicable 2. Height: 5 ft. 5 in. 165.1 cm. Weight: 178.0 lb. oz. 80.740 kg. Patient's BMI: 29.6 3. Vital Signs: BP: 113/72 Pulse: 108 Resp: 16 Temp: 02 Sat: 98 ECG Mon: 4. Pain Intensity: 4 5. Fall Risk: Dizziness: N Needs help standing or walking: N Fallen in the last 3 months: N Fall risk comments: 6. Patient on Blood Thinner: None 7. History of Hypertension: N 8. Opioid Therapy greater than 6 weeks: N Opiate Contract Signed: 9. Risk Assessment Tool Provided: 3-LOW 10. Functional Assessment Tool: 57/70 11. Recreational Drug Use: Never Drug Type: Tobacco Use: Current Every Day Smoker Tobacco Type: Cigarettes Amount or Packs/day: 4-5 CIGS DAY How Many Years: 14 Alcohol Use: Yes Frequency: Special Occasions Quant: 3
== END ==
LOC: PAIN 06:56
PROVIDERS: ATTEND Anesthesiology Pain Medicine
DX: M54.16 Radiculopathy, lumbar region (principal); M79.602 Pain in left arm; E03.9 Hypothyroidism, unspecified; I10 Essential (primary) hypertension; M19.90 Unspecified osteoarthritis, unspecified site; M79.10 Myalgia, unspecified site; Z87.39 Personal history of other diseases of the musculoskeletal system and connective tissue; Z88.8 Allergy status to other drugs, medicaments and biological substances; Z79.899 Other long term (current) drug therapy

== ENCOUNTER → 2020-11-10 | Outpatient (CLI) | payer OTHER ==
[~2020-11-10] VITALS: Ht 165.1 cm; Wt 80.3 kg
[2020-11-10 16:22] VITALS: BP 132/70
--- NOTE | 2020-11-10 17:35 | NUR ---
1730-PT RETURNS TO CV HOLDING TO RECOVER FROM KYPHOPLASTY. OXYGEN REMAINS ON AT 3L NC DUE TO SATS 89-90% ON RA. PT COMFORTABLE NOW LAYING FLAT ON COT. AT BEDSIDE. NO OTHER COMPLAINTS.
--- NOTE | 2020-11-10 17:45 | NUR ---
PT SLEEPING AND ALSO HAS A HX OF SLEEP APNEA. FREQUENTLY REMINDED TO TAKE DEEP BREATHS.
== END | disposition home or self-care (01) ==
LOC: CATH 15:37
PROVIDERS: ATTEND Nuclear Medicine Nuclear Cardiology
DX: M54.9 Dorsalgia, unspecified (principal); M80.08XA Age-related osteoporosis with current pathological fracture, vertebra(e), initial encounter for fracture; I11.0 Hypertensive heart disease with heart failure; I50.9 Heart failure, unspecified; E78.5 Hyperlipidemia, unspecified; E66.09 Other obesity due to excess calories; K21.9 Gastro-esophageal reflux disease without esophagitis; F17.210 Nicotine dependence, cigarettes, uncomplicated; Z90.710 Acquired absence of both cervix and uterus; Z90.49 Acquired absence of other specified parts of digestive tract; Z98.890 Other specified postprocedural states; Z79.899 Other long term (current) drug therapy; Z82.49 Family history of ischemic heart disease and other diseases of the circulatory system; Z91.041 Radiographic dye allergy status; Z88.2 Allergy status to sulfonamides; Z88.8 Allergy status to other drugs, medicaments and biological substances

== ENCOUNTER → 2020-11-10 | Outpatient (CLI) | payer OTHER | LOC: MRI 12:48 | PROVIDERS: ATTEND Family Medicine | DX: S32.010A Wedge compression fracture of first lumbar vertebra, initial encounter for closed fracture (principal); M51.36 Other intervertebral disc degeneration, lumbar region; X58.XXXA Exposure to other specified factors, initial encounter; Y93.89 Activity, other specified; Y92.89 Other specified places as the place of occurrence of the external cause; Y99.8 Other external cause status ==

== ENCOUNTER → 2020-12-01 | Outpatient (CLI) | payer OTHER ==
[~2020-12-01] MED LIST changes: +GRALISE600 MG PO
== END ==
LOC: SJCVC 10:03
PROVIDERS: ATTEND Nuclear Medicine Nuclear Cardiology
DX: M80.08XG Age-related osteoporosis with current pathological fracture, vertebra(e), subsequent encounter for fracture with delayed healing (principal); E24.9 Cushing's syndrome, unspecified; I10 Essential (primary) hypertension; H83.2X9 Labyrinthine dysfunction, unspecified ear; F17.200 Nicotine dependence, unspecified, uncomplicated; Z88.1 Allergy status to other antibiotic agents; Z79.891 Long term (current) use of opiate analgesic; Z79.899 Other long term (current) drug therapy

== ENCOUNTER → 2020-12-02 | Outpatient (CLI) | payer OTHER | LOC: SJCVC 12:01 | PROVIDERS: ATTEND Internal Medicine | DX: I10 Essential (primary) hypertension (principal); E78.00 Pure hypercholesterolemia, unspecified; K21.9 Gastro-esophageal reflux disease without esophagitis; E78.5 Hyperlipidemia, unspecified; G47.33 Obstructive sleep apnea (adult) (pediatric); F17.200 Nicotine dependence, unspecified, uncomplicated; Z79.899 Other long term (current) drug therapy ==

== ENCOUNTER → 2020-12-02 | Outpatient (CLI) | payer OTHER ==
[~2020-12-02] VITALS: Ht 165.1 cm; Wt 79.1 kg
[2020-12-02 14:42] VITALS: BP 149/80
--- NOTE | 2020-12-02 15:19 | NUR ---
Pain Clinic Assessment: 1. History of Osteoarthritis: Right Lower Extremity Right Upper Extremity History of Rheumatoid Arthritis: Not Applicable 2. Height: 5 ft. 5 in. 165.1 cm. Weight: 174.4 lb. oz. 79.107 kg. Patient's BMI: 29.0 3. Vital Signs: BP: 149/80 Pulse: 83 Resp: 16 Temp: 02 Sat: 100 ECG Mon: 4. Pain Intensity: 8 5. Fall Risk: Dizziness: Y Needs help standing or walking: Y Fallen in the last 3 months: N Fall risk comments: 6. Patient on Blood Thinner: None 7. History of Hypertension: N 8. Opioid Therapy greater than 6 weeks: N Opiate Contract Signed: 9. Risk Assessment Tool Provided: 3-LOW 10. Functional Assessment Tool: 57/ 11. Recreational Drug Use: Never Drug Type: Tobacco Use: Current Every Day Smoker Tobacco Type: Cigarettes Amount or Packs/day: 1/3 How Many Years: 20 Alcohol Use: Yes Frequency: Quant:
== END | disposition home or self-care (01) ==
LOC: PAIN 06:59
PROVIDERS: ATTEND Anesthesiology Pain Medicine
DX: M65.4 Radial styloid tenosynovitis [de Quervain] (principal); G89.29 Other chronic pain; G62.9 Polyneuropathy, unspecified; I10 Essential (primary) hypertension; E03.9 Hypothyroidism, unspecified; M19.90 Unspecified osteoarthritis, unspecified site; F17.210 Nicotine dependence, cigarettes, uncomplicated; Z98.890 Other specified postprocedural states; Z90.49 Acquired absence of other specified parts of digestive tract; Z90.710 Acquired absence of both cervix and uterus; Z79.899 Other long term (current) drug therapy; Z88.8 Allergy status to other drugs, medicaments and biological substances

== ENCOUNTER → 2020-12-17 | Outpatient (CLI) | payer OTHER | LOC: SJCVCIMAG 08:39 | PROVIDERS: ATTEND Internal Medicine | DX: I07.1 Rheumatic tricuspid insufficiency (principal); I49.3 Ventricular premature depolarization; R00.2 Palpitations; K21.9 Gastro-esophageal reflux disease without esophagitis; I10 Essential (primary) hypertension; E78.5 Hyperlipidemia, unspecified; G47.33 Obstructive sleep apnea (adult) (pediatric); F17.200 Nicotine dependence, unspecified, uncomplicated; Z90.49 Acquired absence of other specified parts of digestive tract; Z90.710 Acquired absence of both cervix and uterus; Z98.890 Other specified postprocedural states; Z88.8 Allergy status to other drugs, medicaments and biological substances; Z79.899 Other long term (current) drug therapy; Z82.49 Family history of ischemic heart disease and other diseases of the circulatory system ==

== ENCOUNTER → 2021-01-01 | Outpatient (CLI) | payer OTHER ==
--- NOTE | 2021-01-05 08:51 | HPC ---
[facility] [place] [address] [address] [place] [address] PAIN MANAGEMENT CONSULTATION Name: IKE GREGORIO Room #: REG [facility]..#: [id number] Admission: 01/01/21 Attend Phys: Nhi Fernandez Discharge: Date of : 54 Report #: [id number] THIS REPORT FOR: cc: Basim Suarez MD, Neal A. MD Hocker,Nhi CLARK ~ DATE OF SERVICE: 01/01/2021 CHIEF COMPLAINT: Right and left wrist pain. HISTORY OF PRESENT ILLNESS: This is a Telemed appointment that I am speaking with patient from 10:15-10:40 due to COVID. The patient has consented to this Telemed appointment. This is a 70-year-old female who I am speaking via the telephone for a refill and discussion of her medications. Today, the patient is stating her pain as 1-2 in her left hand across the top of her hand and into her fingertips. She states that her right hand has no pain currently. Dr. Miller performed a tendon sheath injection into her thumb at her last visit in November. She is reporting 95% relief from that injection and as I stated, has no pain today. The patient is very thankful for that injection and glad that it worked so well. The patient today is reporting she has been taking 4 Gralise tablets at bedtime because she was taking gabapentin 600 mg 4 times a day. She thought that she was to take this new medication the same way. So therefore she has been out of her Gralise and is requesting refills of that medication. She does continue to take methadone and hydrocodone, but she reports she has been able to decrease her methadone to 3 tablets a day. She denies any significant constipation or daytime somnolence. ALLERGIES: CONTRAST DYE, REGLAN, IODINE, OXYCODONE, SULFA. MEDICATIONS LIST: Hydrocodone 7.5/325 b.i.d. p.r.n., baclofen 10 mg t.i.d., amitriptyline, methadone 5 mg t.i.d. Gralise 600 mg, meloxicam, Nexium, Benicar, paroxetine, Synthroid, vitamin D, potassium, and Lasix. PQRS: Blood pressure, height, weight were not done due to a Telemed appointment. She has osteoarthritis in her upper and lower extremities. Denies any rheumatoid arthritis. Pain score is 1-2 today. She does not take medicine for hypertension. Opioid therapy is greater than 6 weeks. Functional assessment is 57/70. Risk assessment is low. She denies any recreational drug use. She currently smokes a third of a pack of cigarettes a day and occasionally drinks alcohol. According to the prescription monitoring system, she filled her methadone and hydrocodone yesterday filling appropriately. Her morphine milliequivalent is [address] [address] PAIN MANAGEMENT CONSULTATION Name: IKE GREGORIO Room #: REG [facility] [id number] Admission: 01/01/21 Attend Phys: Nhi Fernandez Discharge: Date of : 54 Report #: [id number] MME per day. Physical examination is deferred. This is a review of systems today due to a Telemed appointment. She is alert and oriented, answering my questions appropriately. She is rating her pain score today at 1-2, stating it is in her left hand and wrist, radiating across the top of her hand and into the fingertips, worse when she uses her hands. Denies pain on her right hand. IMPRESSION: 1. Chronic neuropathic pain involving her left arm. 2. History of vertebral instability. 3. Hypertension in the past. 4. Osteoarthritis joint disease. 5. Cervical laminectomy. 6. Myofascial pain. 7. Opioid medications under terms of written opioid agreement. PLAN: 1. We discussed treatment options with the patient today. I explained to her that Gralise and gabapentin are similar medications, though they are not equal equivalent dosing. Gralise is a long-acting medication; therefore, she is not allowed to take 4 tablets at bedtime and we educated her that she is taking more total milligrams by taking her 3 Gralise than she had in the past with her gabapentin. The patient verbalizes understanding. We will send a 3-month of this medication to her mail off pharmacy of 600 mg Gralise 3 tablets at bedtime. 2. The patient has been able to decrease her methadone to no more than 3 tablets a day. We will have Dr. Vince Miller send a 4-week release of this medication for 90 tablets of 5 mg dosage as well as 1 prescription for hydrocodone 7.5/325, #60, for 4-week release as well. 3. We did discuss her amitriptyline. She has not been taking this medication because she thought it was only for sleep. We did discuss that does help with some neuropathic properties as well as some sleep. She reports she will trial this medication taking one at bedtime for 7 days and then increase to [address] Miller had instructed her to do. The patient found the injection in her tendon sheath of her right hand very beneficial that Dr. Miller performed and is not complaining of any pain today. The patient discussed on the phone call with collaboration of Dr. Miller. The patient will return in the office for a visit in 2 months. <ELECTRONICALLY SIGNED> By: Nhi Fernandez 01/05/21 0851 [id number] Nhi Fernandez /nt
== END ==
LOC: TELEPC 07:52
PROVIDERS: ATTEND Clinical Nurse Specialist Adult Health
DX: M25.531 Pain in right wrist (principal); M25.532 Pain in left wrist; G62.9 Polyneuropathy, unspecified; I10 Essential (primary) hypertension; M19.90 Unspecified osteoarthritis, unspecified site; M96.1 Postlaminectomy syndrome, not elsewhere classified; M79.10 Myalgia, unspecified site; F11.20 Opioid dependence, uncomplicated; Z88.8 Allergy status to other drugs, medicaments and biological substances; Z79.899 Other long term (current) drug therapy

== ENCOUNTER → 2021-05-28 | Outpatient (CLI) | payer OTHER ==
[~2021-05-28] VITALS: Ht 165.1 cm; Wt 79.9 kg
[~2021-05-28] MED LIST changes: +AMITRIPTYLINE H25 M3 PO
[2021-05-28 09:29] VITALS: BP 139/81
--- NOTE | 2021-05-28 09:51 | NUR ---
Pain Clinic Assessment: 1. History of Osteoarthritis: "ALL OVER HER BODY" History of Rheumatoid Arthritis: Not Applicable 2. Height: 5 ft. 5 in. 165.1 cm. Weight: 176.2 lb. oz. 79.924 kg. Patient's BMI: 29.3 3. Vital Signs: BP: 139/81 Pulse: 73 Resp: 16 Temp: 02 Sat: 99 ECG Mon: 4. Pain Intensity: 4 TO 5 5. Fall Risk: Dizziness: Y Needs help standing or walking: N Fallen in the last 3 months: N Fall risk comments: 6. Patient on Blood Thinner: None 7. History of Hypertension: Y 8. Opioid Therapy greater than 6 weeks: N Opiate Contract Signed: 9. Risk Assessment Tool Provided: 3-LOW 10. Functional Assessment Tool: 57/70 11. Recreational Drug Use: Never Drug Type: Tobacco Use: Current Every Day Smoker Tobacco Type: Cigarettes Amount or Packs/day: 5 OR 6 PER D How Many Years: Alcohol Use: Yes Frequency: Special Occasions Quant: 1
== END ==
LOC: PAIN 07:29
PROVIDERS: ATTEND Anesthesiology Pain Medicine
DX: G89.29 Other chronic pain (principal); G62.9 Polyneuropathy, unspecified; M53.2X9 Spinal instabilities, site unspecified; E03.9 Hypothyroidism, unspecified; I10 Essential (primary) hypertension; M19.90 Unspecified osteoarthritis, unspecified site; B37.89 Other sites of candidiasis; Z79.899 Other long term (current) drug therapy; Z79.891 Long term (current) use of opiate analgesic

== ENCOUNTER → 2021-06-11 | Outpatient (CLI) | payer OTHER ==
[~2021-06-11] VITALS: Ht 165.1 cm; Wt 79.8 kg
[~2021-06-11] MED LIST changes: +CALCIUM 600+D31 EACH PO; +MELOXICAM15 MG PO; +METHADONE HCL 110 M1 PO; +NORCO7.5 PO; -POTASSIUM20; +POTASSIUM20 PO; +VITAMIN B-125000 MCG PO; -VITAMIN D 5050000 I1 PO; +VITAMIN D31250 MC1 PO
--- NOTE | ~2021-06-11 | P ---
[facility] [place] [address] [address] [place] [address] PROCEDURE REPORT Name: IKE GREGORIO Room #: REG ISIDRA Gloria#: [id number] Admission: 06/11/21 Attend Phys: Zac Tavares Discharge: Date of : 54 Report #: [id number] THIS REPORT FOR: cc: Basim Suarez MD, Neal A. MD McElhinney, Christian C. MD ~ cc: Basim uSarez MD DATE OF SERVICE: 06/11/2021 PROCEDURE PERFORMED: Upper endoscopy with esophageal dilation. HISTORY OF PRESENT ILLNESS: The patient is a 70-year-old female who underwent an upper endoscopy by myself on 01/19/2021 for dysphagia, at that time possible history of Lexus esophagitis as well as intermittent chest pain on daily PPI therapy. She was noted to have severe Lexus esophagitis at that time throughout her entire esophagus. She was then treated with two separate courses of Diflucan for 21 days. I recommended upper endoscopy repeat in 1-2 months that was not performed, but she is here today for repeat endoscopy. She does report improvement in her symptoms, but does report some mild dysphagia at times. Biopsies were also obtained at that time for gastritis, which was negative for H. pylori. DESCRIPTION OF PROCEDURE: The risks and benefits of the procedure were explained to the patient, those risks including but not limited to bleeding, perforation and the risk of sedation. She understood these risks and gave informed consent. Sedation was given using propofol per anesthesia. Next, using a standard Olympus upper endoscope, the scope was placed in the patient's mouth and advanced under direct vision through the esophagus, stomach and into the second portion of the duodenum. The larynx was normal in appearance. The esophagus was normal throughout. No evidence of Lexus esophagitis. Areas were all well healed. GE junction was normal. There again was a mild gastritis in the stomach. I did not repeat biopsies as this was just performed. No evidence of ulcerations. The pylorus was normal and patent. The duodenal bulb, first and second portion were all normal. The scope was then brought back up into the patient's stomach and a Savary guidewire was inserted through the scope, leaving the guidewire in place as the scope was then withdrawn. Next, a 48-Telugu Savary dilation of the esophagus was then performed without difficulty. The wire and dilator removed. The scope was reintroduced into the patient's stomach. There was no evidence of mucosal tear after dilation. The scope was then withdrawn and the procedure terminated. The patient tolerated the procedure well. IMPRESSION: 1. Previous Lexus esophagitis well healed. 2. Mild gastritis again noted. [address] [address] PROCEDURE REPORT Name: JGIKEGABRIEL LEONARD Room #: REG ISIDRA Castro#: [id number] Admission: 06/11/21 Attend Phys: Zac Tavares Discharge: Date of : 54 Report #: [id number] 3. Otherwise, normal upper endoscopy. RECOMMENDATIONS: 1. Continue daily PPI therapy. 2. Observe at this time. Thank you for allowing me to participate in her care. By: [id number] Zac Moreno MD /nt
== END | disposition home or self-care (01) ==
LOC: PAIN → GI 07:35
PROVIDERS: ATTEND Specialist
DX: R13.10 Dysphagia, unspecified (principal); K29.70 Gastritis, unspecified, without bleeding; K21.9 Gastro-esophageal reflux disease without esophagitis; I10 Essential (primary) hypertension; G47.30 Sleep apnea, unspecified; F17.210 Nicotine dependence, cigarettes, uncomplicated; Z98.890 Other specified postprocedural states; Z79.899 Other long term (current) drug therapy; Z90.49 Acquired absence of other specified parts of digestive tract; Z90.710 Acquired absence of both cervix and uterus; Z98.0 Intestinal bypass and anastomosis status; Z87.19 Personal history of other diseases of the digestive system
CPT/HCPCS: 62110; 62900

== ENCOUNTER → 2021-09-29 | Outpatient (CLI) | payer OTHER ==
[~2021-09-29] VITALS: Ht 165.1 cm; Wt 78.7 kg
[~2021-09-29] MED LIST changes: +AMITRIPTYLINE H25 M4 PO; +HYDROCODON-ACE1 EAC8 PO; +MOVANTIK25 MG PO
[2021-09-29 10:33] VITALS: BP 136/90
--- NOTE | 2021-09-29 10:50 | NUR ---
Pain Clinic Assessment: 1. History of Osteoarthritis: "ALL OVER HER BODY" History of Rheumatoid Arthritis: Not Applicable 2. Height: 5 ft. 5 in. 165.1 cm. Weight: 173.6 lb. oz. 78.744 kg. Patient's BMI: 28.9 3. Vital Signs: BP: 136/90 Pulse: 93 Resp: 16 Temp: 02 Sat: 98 ECG Mon: 4. Pain Intensity: 5 TO 10 (WITH ACTIVITY) 5. Fall Risk: Dizziness: N Needs help standing or walking: Y Fallen in the last 3 months: N Fall risk comments: 6. Patient on Blood Thinner: None 7. History of Hypertension: Y 8. Opioid Therapy greater than 6 weeks: N Opiate Contract Signed: 9. Risk Assessment Tool Provided: 3-LOW 10. Functional Assessment Tool: 57/ 11. Recreational Drug Use: Never Drug Type: Tobacco Use: Current Every Day Smoker Tobacco Type: Cigarettes Amount or Packs/day: 1/4 PK/D How Many Years: Alcohol Use: No Frequency: Quant:
== END ==
LOC: PAIN 08:36
PROVIDERS: ATTEND Clinical Nurse Specialist Adult Health
DX: G89.29 Other chronic pain (principal); M54.16 Radiculopathy, lumbar region; M79.622 Pain in left upper arm; F11.20 Opioid dependence, uncomplicated; M96.1 Postlaminectomy syndrome, not elsewhere classified; Z88.8 Allergy status to other drugs, medicaments and biological substances; Z79.899 Other long term (current) drug therapy

== ENCOUNTER 2021-10-15 08:43 | Emergency (ER) | payer OTHER ==
[~2021-10-15] VITALS: Ht 165.1 cm; Wt 78.5 kg
[2021-10-15] MEDS ORDERED: BENICAR40 MG PO (09:25)
[2021-10-15] MEDS ORDERED: FUROSEMIDE 40 M40 M1 PO (09:25)
[2021-10-15] MEDS ORDERED: PAROXETINE HCL30 MG PO (09:26)
[2021-10-15] MEDS ORDERED: POTASSIUM CHLO20 ME1 PO (09:26)
[2021-10-15 09:56] LABS: ABSOLUTE NEUTROPHILS 1.7 thou/uL (1.4-8.2); BASOPHILS 1.1 % (0.0-2.0); EOSINOPHILS 3.3 % (0.0-3.0); HEMATOCRIT 43.7 % (37.0-47.0); HEMOGLOBIN 14.4 gm/dL (12.0-15.0); LYMPHOCYTES 48.7 % (24.0-44.0); MCH 30.3 pg (26.0-34.0); MCHC 32.9 g/dL (28.0-37.0); MONOCYTES 8.4 % (1.0-8.0); PLATELET COUNT 153 thou/uL (150-400); POLYS 38.5 % (36.0-66.0); RBC 4.75 mil/uL (4.20-5.00); RDW 14.2 % (10.5-14.5); WBC 4.4 thou/uL (4.0-11.0)
--- NOTE | 2021-10-15 09:56 | EKG ---
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 : 1950 Requested By: Elsa Guaman Order Number: [id number] MD: Amilcar Haney Measurements Intervals Eldred Rate: 75 P: 36 NC: 139 QRS: 10 QRSD: 85 T: 37 QT: 377 QTc: 421 Interpretive Statements Sinus rhythm Left ventricular hypertrophy Compared to ECG 11/17/2019 16:15:05 Left ventricular hypertrophy now present ST (T wave) deviation no longer present Poor R-wave progression no longer present Electronically Signed On 10-15-2021 9:56:02 DRAMATIC CRITIC by Amilcar Haney [email or web address] <ELECTRONICALLY SIGNED> By: Amilcar Haney MD 10/15/2156 1 0902 Amilcar Haney MD /FERDINAND
[2021-10-15 10:03] LABS: ANION GAP 7 mmol/L (7-16); BUN 19 mg/dL (7-18); CALCIUM 9.3 mg/dL (8.5-10.1); CHLORIDE 104 mmol/L (98-107); CO2 31 mmol/L (21-32); CREATININE 1.6 mg/dL (0.6-1.0); GLUCOSE 113 mg/dL (74-106); POTASSIUM 4.5 mmol/L (3.5-5.1); SODIUM 142 mmol/L (136-145)
[2021-10-15 10:09] LABS: ALBUMIN 3.9 g/dL (3.4-5.0); DIRECT BILIRUBIN < 0.1 mg/dL (<0.1-0.2); LIPASE 289 U/L (73-393); SGOT 26 U/L (15-37); SGPT 27 U/L (14-59); TOTAL BILIRUBIN 0.4 mg/dL (0.2-1.0); TOTAL PROTEIN 7.4 g/dL (6.4-8.2)
[2021-10-15 12:12] VITALS: BP 169/83
== END 2021-10-15 12:12 | disposition home or self-care (01) ==
LOC: ER 08:43
PROVIDERS: Emergency Medicine
DX: M54.42 Lumbago with sciatica, left side (principal); I10 Essential (primary) hypertension; K21.9 Gastro-esophageal reflux disease without esophagitis; Z90.89 Acquired absence of other organs; Z90.49 Acquired absence of other specified parts of digestive tract; Z90.710 Acquired absence of both cervix and uterus; Z86.718 Personal history of other venous thrombosis and embolism; Z79.899 Other long term (current) drug therapy; Z79.891 Long term (current) use of opiate analgesic; Z79.1 Long term (current) use of non-steroidal anti-inflammatories (NSAID); Z88.8 Allergy status to other drugs, medicaments and biological substances; Z88.5 Allergy status to narcotic agent; Z88.2 Allergy status to sulfonamides; Z88.6 Allergy status to analgesic agent; Z88.1 Allergy status to other antibiotic agents; Z91.041 Radiographic dye allergy status; Z91.040 Latex allergy status

== ENCOUNTER → 2021-10-20 | Outpatient (CLI) | payer OTHER ==
[~2021-10-20] VITALS: Ht 165.1 cm; Wt 79.0 kg
[~2021-10-20] MED LIST changes: +FUROSEMIDE 40 M40 M1 PO; +PAROXETINE HCL30 MG PO; +POTASSIUM CHLO20 ME1 PO
[2021-10-20 13:15] VITALS: BP 129/92
--- NOTE | 2021-10-20 13:38 | NUR ---
Pain Clinic Assessment: 1. History of Osteoarthritis: "ALL OVER HER BODY" History of Rheumatoid Arthritis: Not Applicable 2. Height: 5 ft. 5 in. 165.1 cm. Weight: 174.2 lb. oz. 79.017 kg. Patient's BMI: 29.0 3. Vital Signs: BP: 129/92 Pulse: 75 Resp: 16 Temp: 02 Sat: 98 ECG Mon: 4. Pain Intensity: 6/7 5. Fall Risk: Dizziness: N Needs help standing or walking: Y Fallen in the last 3 months: N Fall risk comments: 6. Patient on Blood Thinner: None 7. History of Hypertension: Y 8. Opioid Therapy greater than 6 weeks: N Opiate Contract Signed: 9. Risk Assessment Tool Provided: 3-LOW 10. Functional Assessment Tool: 57/70 11. Recreational Drug Use: Never Drug Type: Tobacco Use: Current Every Day Smoker Tobacco Type: Cigarettes Amount or Packs/day: 4/ cigs dly How Many Years: Alcohol Use: No Frequency: Quant:
== END | disposition home or self-care (01) ==
LOC: PAIN 10:52
PROVIDERS: ATTEND Anesthesiology Pain Medicine
DX: M79.18 Myalgia, other site (principal); M79.2 Neuralgia and neuritis, unspecified; G89.29 Other chronic pain; I10 Essential (primary) hypertension; E03.9 Hypothyroidism, unspecified; M19.90 Unspecified osteoarthritis, unspecified site; K21.9 Gastro-esophageal reflux disease without esophagitis; F17.210 Nicotine dependence, cigarettes, uncomplicated; Z98.890 Other specified postprocedural states; Z79.899 Other long term (current) drug therapy; Z90.710 Acquired absence of both cervix and uterus; Z88.8 Allergy status to other drugs, medicaments and biological substances; Z88.2 Allergy status to sulfonamides; Z91.041 Radiographic dye allergy status; Z91.040 Latex allergy status

== ENCOUNTER → 2021-12-06 | Outpatient (CLI) | payer OTHER ==
--- NOTE | 2021-12-12 21:53 | SLE ---
[facility] [place] [address] POLYSOMNOGRAPHY STUDY Name: IKE GREGORIO Room #: [facility].#: [id number] Admission: 12/06/21 Attend Phys: Derik Rhodes MD Discharge: Date of : 54 Report #: [id number] THIS REPORT FOR: cc: Basim Suarez MD, Neal A. MD Khan, Aman U. MD ~ cc: Basim Suarez MD DATE OF SERVICE: 12/06/2021 SLEEP STUDY ATTENDING PHYSICIAN: Dr. Basim Suarez The patient is 71 years old, who weighs 174 pounds with a BMI of 29. The patient had severe subjective hypersomnia with an [place] score of 23. The patient underwent diagnostic sleep study performed at [facility]. During the night study, the patient spent 424 minutes in bed and slept for 378 minutes with a sleep efficiency of 89%. Sleep latency was 18 minutes with a REM latency of 322 minutes. Sleep architecture showed normal stage I sleep, increased stage 2 sleep, normal slow wave and slightly reduced REM sleep which is 14% of total sleep time. During the night of the study, the patient had 69 central apneas, no mixed or obstructive apneas and 144 hypopneas. The patient's AHI was 33.8 per hour with a REM AHI of 12.6 per hour and a supine AHI of 40 per hour. EKG monitoring revealed an average heart rate of 67 beats per minute. No sustained arrhythmias observed. PLMs were seen at index of 21 per hour with only 0.6 per hour caused EEG arousals. Nocturnal Oximetry revealed average saturation of 94%. 30 minutes were spent with saturations of less then 89% with a lowest of 78%. The patient did meet the criteria for CPAP initiation, but it was late in the night when she started to have more respiratory events, as a result positive pressure therapy was not initiated. IMPRESSION: 1. Severe sleep apnea-hypopnea syndrome at an AHI of 33.8 per hour. The patient's sleep apnea was mixed including combination of hypopneas and central apneas. 2. Nocturnal hypoxia secondary to obstructive sleep apnea. [facility] [address] [place] [address] POLYSOMNOGRAPHY STUDY Name: IKE GREGORIO Room #: [facility].#: [id number] Admission: 12/06/21 Attend Phys: Derik Rhodes MD Discharge: Date of : 54 Report #: [id number] . 3. Mild to moderate periodic limb movements without any significant EEG arousals. RECOMMENDATIONS: 1. The patient should return to the sleep lab for a CPAP titration study. The patient has severe subjective hypersomnia with an [place] score of 23. 2. Once the patient is optimally treated with positive pressure therapy, then follow up in 4-6 weeks to assess compliance and to document clinical improvement. 3. Weight loss is advised. 4. Avoid INVENTORY CONTROL ASSISTANT depressants. 5. Cautioned regarding driving until the patient's hypersomnia is resolved with above recommendation. 6. PLMs does not need to be treated unless the patient has symptoms of restless legs during the day. <ELECTRONICALLY SIGNED> By: Derik Rhodes MD 12/12/21 2153 [id number] 1832 Derik Rhodes MD /nt
== END ==
LOC: SLEEPLAB 13:52
PROVIDERS: ATTEND Internal Medicine Critical Care Medicine
DX: Z20.822 Contact with and (suspected) exposure to COVID-19 (principal); G47.33 Obstructive sleep apnea (adult) (pediatric)

== ENCOUNTER → 2021-12-17 | Outpatient (CLI) | payer OTHER ==
[~2021-12-17] VITALS: Ht 165.1 cm; Wt 82.4 kg
[2021-12-17 10:21] VITALS: BP 163/97
--- NOTE | 2021-12-17 10:28 | NUR ---
Pain Clinic Assessment: 1. History of Osteoarthritis: "ALL OVER HER BODY" History of Rheumatoid Arthritis: Not Applicable 2. Height: 5 ft. 5 in. 165.1 cm. Weight: 181.6 lb. oz. 82.373 kg. Patient's BMI: 30.2 3. Vital Signs: BP: 163/97 Pulse: 85 Resp: 16 Temp: 02 Sat: 96 ECG Mon: 4. Pain Intensity: 6/7 5. Fall Risk: Dizziness: Y Needs help standing or walking: Y Fallen in the last 3 months: N Fall risk comments: 6. Patient on Blood Thinner: None 7. History of Hypertension: Y 8. Opioid Therapy greater than 6 weeks: N Opiate Contract Signed: 9. Risk Assessment Tool Provided: 3-LOW 10. Functional Assessment Tool: 57/ 11. Recreational Drug Use: Never Drug Type: Tobacco Use: Current Every Day Smoker Tobacco Type: Cigarettes Amount or Packs/day: 4/CIGS How Many Years: Alcohol Use: No Frequency: Quant:
== END ==
LOC: PAIN 06:59
PROVIDERS: ATTEND Anesthesiology Pain Medicine
DX: M54.2 Cervicalgia (principal); M79.662 Pain in left lower leg; G62.9 Polyneuropathy, unspecified; M25.552 Pain in left hip; Z79.899 Other long term (current) drug therapy; Z88.8 Allergy status to other drugs, medicaments and biological substances; Z79.82 Long term (current) use of aspirin

== ENCOUNTER → 2022-01-05 | Outpatient (CLI) | payer OTHER ==
[~2022-01-05] VITALS: Ht 175.3 cm; Wt 81.6 kg
[~2022-01-05] MED LIST changes: +LEVOTHYROXINE125 MC1 PO; +QNASL10.6 GM NASAL
--- NOTE | 2022-01-06 11:34 | P ---
[facility] [place] [address] PROCEDURE REPORT Name: IKE GREGORIO Room #: [facility]#: [id number] Admission: 01/05/22 Attend Phys: Zac Tavares Discharge: Date of : 54 Report #: [id number] THIS REPORT FOR: cc: Basim Suarez MD, Neal A. MD McElhinney, Christian C. MD ~ cc: Basim Suarez MD DATE OF SERVICE: 01/05/2022 PROCEDURE PERFORMED: Upper endoscopy with biopsies and esophageal dilation. HISTORY OF PRESENT ILLNESS: The patient is a 71-year-old female who underwent an EGD by myself in January of last year for dysphagia and possible history of Lexus esophagitis as well as chest pain. She was on daily PPI therapy at that time. She was noted to have severe suspected Lexus esophagitis with the entire esophagus being coated with white plaquing. Biopsy at that time did show fungal organisms and acute candidiasis. She was then treated with p.o. Diflucan for several weeks. She then underwent a repeat upper endoscopy in May. Previous Lexus esophagitis was well healed. Mild gastritis was noted. Again, previous biopsies were negative for H. pylori on the initial EGD. She does have some intermittent dysphagia at this time. Denies any significant odynophagia. She is on PPI therapy. She is also on a steroid nasal spray. Plan is for repeat upper endoscopy. DESCRIPTION OF PROCEDURE: The risks and benefits of the procedure were explained to the patient, those risks including but not limited to bleeding, perforation and the risk of sedation. She understood these risks and gave informed consent. Sedation was given using propofol per anesthesia. Next, using a standard Olympus upper endoscope, the scope was placed in the patient's mouth and advanced under direct vision through the esophagus, stomach and into the second portion of the duodenum. Near the larynx, there was some white plaquing suggesting possible Lexus in the hypopharynx region. In the esophagus, the mucosa was normal, no obvious Lexus changes were noted in the esophagus: The GE junction was normal. There was a diffuse gastritis again noted in the gastric fundus and body. Biopsies were obtained to rule out H. pylori. The gastric antrum was normal. The pylorus was normal and patent. The duodenal bulb, first and second portion were all normal. The scope was then brought back up into the patient's stomach and a Savary guidewire was inserted through the scope, leaving the guidewire in place as the scope was then withdrawn. Next, a 48-Polish Savary dilation was then performed without difficulty. The wire and dilator removed. The scope was reintroduced into the patient's mouth and into the stomach. No evidence of mucosal tear was noted after dilation. The scope was then withdrawn and the procedure terminated. The patient tolerated the procedure well. [address] [address] PROCEDURE REPORT Name: IKE GREGORIO Room #: [facility] Castro#: [id number] Admission: 01/05/22 Attend Phys: Zac Tavares Discharge: Date of : 54 Report #: [id number] IMPRESSION: 1. Possible Lexus involving the larynx area or the area near the larynx. 2. Gastritis. 3. Otherwise, normal upper endoscopy. RECOMMENDATIONS: 1. Await biopsy results. 2. Observe the patient post-dilation. 3. Continue PPI therapy. 4. We will add Mycelex mone for the next week at this time. Thank you for allowing me to participate in her care. <ELECTRONICALLY SIGNED> By: Zac Moreno MD 01/06/22 1134 1158 195 Zac Moreno MD /nt
--- NOTE | 2022-01-07 17:07 | PATH ---
[facility] [address] [place] [address] PATHOLOGY RPT PROCEDURE Name: AMERICA GREGORIO Room #: [facility].#: [id number] Admission: 01/05/22 Date of : 54 Discharge: Report #: [id number] Path Case #: [id number] [facility] Accession Number: [id number] . 01 Material submitted: . gastrointestinal site - GASTRITIS R/O H. PYLORI . 01 Clinical history: . FUNGUS, PAULA, ESOPHAGITIS . 02 Diagnosis: Stomach "gastritis", biopsy: - Gastric antral and oxyntic mucosa with mild chronic gastritis. - Negative for active inflammation, intestinal metaplasia, dysplasia, and malignancy. - Negative for Helicobacter pylori. (MLK:pit; 01/07/2022) QTP 01/07/2022 1628 Local . 02 Electronically signed: . Bert Umanzor MD, Pathologist NPI- [id number] . 01 Gross description: . The specimen is received in formalin, labeled "America Gregorio, gastritis rule out H. pylori". Received are 4 segments of pale estrella tissue ranging in size from 0.2 to 0.5 cm in maximum dimensions. The specimen is submitted entirely in cassette A1.([facility]; 01/06/2022) [facility] 01/06/2022 1523 Local . 02 Microscopic: . Immunohistochemical stain results (properly controlled) Helicobacter pylori (A1) - Negative for organisms. (MLK:pit; 01/07/2022) . 02 Pathologist provided ICD-10: K29.50 . 02 CPT . 452259, A03148 Specimen Comment: A courtesy copy of this report has been sent to [phone], [phone] Specimen Comment: [id number] Specimen Comment: Report sent to AND DR BUCKNER Performed at: [address], [place], [place] [id number] [place] [address] PATHOLOGY RPT PROCEDURE Name: JGAMERICA HORACIO Room #: [facility].#: [id number] Admission: 01/05/22 Date of : 54 Discharge: Report #: [id number] Path Case #: [id number] MD Juancho Courtney MD Phone: [phone] Performed at: [address] [id number] MD Duarte Walker MD Phone: [phone]
== END | disposition home or self-care (01) ==
LOC: GI 08:04
PROVIDERS: ATTEND Specialist
DX: R13.10 Dysphagia, unspecified (principal); K29.50 Unspecified chronic gastritis without bleeding; K31.89 Other diseases of stomach and duodenum; I10 Essential (primary) hypertension; G47.30 Sleep apnea, unspecified; K21.9 Gastro-esophageal reflux disease without esophagitis; Z90.49 Acquired absence of other specified parts of digestive tract; Z90.710 Acquired absence of both cervix and uterus; Z98.890 Other specified postprocedural states; Z79.899 Other long term (current) drug therapy; Z20.822 Contact with and (suspected) exposure to COVID-19
CPT/HCPCS: 62110; 62900

== ENCOUNTER → 2022-01-15 | Outpatient (CLI) | payer OTHER | LOC: MRI 11-08 10:29 → SLEEPLAB 21:02 | PROVIDERS: ATTEND Internal Medicine Pulmonary Disease | DX: G47.33 Obstructive sleep apnea (adult) (pediatric) (principal) ==